=== PATIENT | female | born 1960 | race Caucasian/White ===

== ENCOUNTER 2019-11-06 14:12 | Emergency (ER) | payer BC ==
[2019-11-06 14:24] VITALS: TEMP 97.4
[2019-11-06] MEDS ORDERED: ONDANSETRON 4 MG/2 ML VIAL IVP STA (14:39)
[2019-11-06] MEDS ORDERED: SODIUM CHLORIDE 0.9% 1,000 ML IV STA (14:39)
[2019-11-06] MEDS ORDERED: HYDROmorphone 1 MG/ML 1 ML SYRINGE IVP STA (14:39)
--- NOTE | 2019-11-06 14:49 | ED ---
Abdominal Pain HPI - General Chief Complaint: Abdominal Pain Stated Complaint: left flank pain Time Seen by Provider: 11/06/19 14:26 Source: patient Mode of arrival: wheelchair Limitations: no limitations - History of Present Illness Initial Comments: Patient is a 59-year-old female with past medical history of hypertension who presents emergency Department with sudden onset left-sided flank pain. She states that just prior to arrival she began having excruciating sharp, left- sided flank pain that does not radiate. Pain was so severe that she ended up having an episode of nonbilious, nonbloody vomiting. No history of similar in the past. Denies history of kidney stones. Denies dysuria, hematuria or difficulty voiding. Denies diarrhea, constipation, melenic stools or hematochezia. Abnormal vaginal bleeding or discharge. Denies recent trauma. No fevers or chills. Did not take any medications at home for symptoms. No associated rash. Patient writhing around in bed and so history is difficult to obtain. Denies numbness, tingling or weakness in her lower extremities. No chest pain or shortness of breath. No other alleviating, precipitating or modifying factors - Related Data Previous Rx's Medication Instructions Recorded Hydrocodone/Acetaminophen [[place] 1 tab PO Q6HR PRN #12 tab 11/06/19 5-325] Allergies Allergy/AdvReac Type Severity Reaction Status Date / Time No Known Allergies Allergy Verified 11/06/19 14:24 Review of Systems ROS Statement: Those systems with pertinent positive or pertinent negative responses have been documented in the HPI. ROS Other: All systems not noted in ROS Statement are negative. Past Medical History Past Medical History: Hyperlipidemia, Hypertension, Thyroid Disorder History of Any Multi-Drug Resistant Organisms: None Reported Additional Past Surgical History / Comment(s): thyroid surgery Past Psychological History: No Psychological Hx Reported Smoking Status: Never smoker Past Alcohol Use History: None Reported Past Drug Use History: None Reported General Exam Limitations: no limitations General appearance: alert, in distress Head exam: Present: atraumatic, normocephalic, normal inspection Eye exam: Present: normal appearance, PERRL, EOMI. Absent: scleral icterus, conjunctival injection, periorbital swelling ENT exam: Present: normal exam, mucous membranes moist Neck exam: Present: normal inspection. Absent: tenderness, meningismus, lymphadenopathy Respiratory exam: Present: normal lung sounds bilaterally. Absent: respiratory distress, wheezes, rales, rhonchi, stridor Cardiovascular Exam: Present: regular rate, normal rhythm, normal heart sounds. Absent: systolic murmur, diastolic murmur, rubs, gallop, clicks GI/Abdominal exam: Present: soft, normal bowel sounds. Absent: distended, tenderness, guarding, rebound, rigid Extremities exam: Present: normal inspection, full ROM, normal capillary refill. Absent: tenderness, pedal edema, joint swelling, calf tenderness Back exam: Present: normal inspection Neurological exam: Present: alert, oriented X3, CN II-XII intact Psychiatric exam: Present: normal affect, normal mood Skin exam: Present: warm, dry, intact, normal color. Absent: rash Course Vital Signs 11/06/19 11/06/19 14:19 16:58 Temperature 97.4 F L Pulse Rate 69 67 Respiratory 20 16 Rate Blood Pressure 130/89 151/75 O2 Sat by Pulse 98 98 Oximetry Medical Decision Making - Medical Decision Making Upon arrival the patient is placed in room 21. A thorough history and physical exam was performed. The patient is writhing around in pain. We did insert a peripheral IV the patient was given 1 mg of Dilaudid and 4 mg of Zofran. I also gave her liter bolus of normal saline. Laboratory studies were conducted. The patient go over for a CT of her abdomen and pelvis with contrast. Laboratory studies are unremarkable. Urinalysis shows moderate blood with moderate leukocyte esterase, 132 red blood cells and 27 white blood cells. This will go for culture. A CT of the patient's abdomen and pelvis demonstrates small obstructing hydrocephalus at the left ureterovesicular junction with left-sided hydronephrosis and mild hydroureter also low density right adrenal mass suggestive of benign disease. The patient is reevaluated and does have improvement in her symptoms. Reports her pain is 2 out of 10 at this time. I did discuss diagnosis, differential and treatment options. At this time the patient will be discharged home and given a prescription for [place]. Side effect profile discuss with the patient. She is to strain all urine. Increase fluid intake. She can take Motrin at home alternating with the [place]. No additional Tylenol to be taken. She is to follow up to primary care doctor in 2-4 days. I also provided her with information in regards to our urologist on-call. Return to the emergency room for any new or worsening symptoms. Patient understood this was discharged home in stable condition - Lab Data Result diagrams: 11/06/19 14:57 11/06/19 14:57 Lab Results 11/06/19 11/06/19 11/06/19 Range/Units 14:57 14:57 14:57 WBC 7.9 (3.8-10.6) k/uL RBC 4.73 (3.80-5.40) m/uL Hgb 14.9 (11.4-16.0) gm/dL Hct 43.9 (34.0-46.0) % MCV 92.7 (80.0-100.0) fL MCH 31.4 (25.0-35.0) pg MCHC 33.9 (31.0-37.0) g/dL RDW 12.9 (11.5-15.5) % Plt Count 279 (150-450) k/uL Neutrophils % 68 % Lymphocytes % 22 % Monocytes % 5 % Eosinophils % 3 % Basophils % 0 % Neutrophils # 5.3 (1.3-7.7) k/uL Lymphocytes # 1.7 (1.0-4.8) k/uL Monocytes # 0.4 (0-1.0) k/uL Eosinophils # 0.2 (0-0.7) k/uL Basophils # 0.0 (0-0.2) k/uL Sodium 139 (137-145) mmol/L Potassium 4.2 (3.5-5.1) mmol/L Chloride 108 H (98-107) mmol/L Carbon Dioxide 24 (22-30) mmol/L Anion Gap 7 mmol/L BUN 20 H (7-17) mg/dL Creatinine 0.84 (0.52-1.04) mg/dL Est GFR (CKD-EPI)AfAm 87 (>60 ml/min/1.73 sqM) Est GFR (CKD-EPI)NonAf 76 (>60 ml/min/1.73 sqM) Glucose 127 H (74-99) mg/dL Plasma Lactic Acid Rk 1.8 (0.7-2.0) mmol/L Calcium 9.2 (8.4-10.2) mg/dL Total Bilirubin 0.4 (0.2-1.3) mg/dL AST 28 (14-36) U/L ALT 23 (4-34) U/L Alkaline Phosphatase 77 (38-126) U/L Total Protein 7.7 (6.3-8.2) g/dL Albumin 4.2 (3.5-5.0) g/dL Lipase 62 (23-300) U/L Urine Color Urine Appearance (Clear) Urine pH (5.0-8.0) Ur Specific [place] (1.001-1.035) Urine Protein (Negative) Urine Glucose (UA) (Negative) Urine Ketones (Negative) Urine Blood (Negative) Urine Nitrite (Negative) Urine Bilirubin (Negative) Urine Urobilinogen (<2.0) mg/dL Ur Leukocyte Esterase (Negative) Urine RBC (0-5) /hpf Urine WBC (0-5) /hpf Ur Squamous Epith Cells (0-4) /hpf 11/06/19 Range/Units 17:00 WBC (3.8-10.6) k/uL RBC (3.80-5.40) m/uL Hgb (11.4-16.0) gm/dL Hct (34.0-46.0) % MCV (80.0-100.0) fL MCH (25.0-35.0) pg MCHC (31.0-37.0) g/dL RDW (11.5-15.5) % Plt Count (150-450) k/uL Neutrophils % % Lymphocytes % % Monocytes % % Eosinophils % % Basophils % % Neutrophils # (1.3-7.7) k/uL Lymphocytes # (1.0-4.8) k/uL Monocytes # (0-1.0) k/uL Eosinophils # (0-0.7) k/uL Basophils # (0-0.2) k/uL Sodium (137-145) mmol/L Potassium (3.5-5.1) mmol/L Chloride (98-107) mmol/L Carbon Dioxide (22-30) mmol/L Anion Gap mmol/L BUN (7-17) mg/dL Creatinine (0.52-1.04) mg/dL Est GFR (CKD-EPI)AfAm (>60 ml/min/1.73 sqM) Est GFR (CKD-EPI)NonAf (>60 ml/min/1.73 sqM) Glucose (74-99) mg/dL Plasma Lactic Acid Rk (0.7-2.0) mmol/L Calcium (8.4-10.2) mg/dL Total Bilirubin (0.2-1.3) mg/dL AST (14-36) U/L ALT (4-34) U/L Alkaline Phosphatase (38-126) U/L Total Protein (6.3-8.2) g/dL Albumin (3.5-5.0) g/dL Lipase (23-300) U/L Urine Color Light Yellow Urine Appearance Cloudy H (Clear) Urine pH 6.5 (5.0-8.0) Ur Specific [place] 1.043 H (1.001-1.035) Urine Protein Negative (Negative) Urine Glucose (UA) Negative (Negative) Urine Ketones Negative (Negative) Urine Blood Moderate H (Negative) Urine Nitrite Negative (Negative) Urine Bilirubin Negative (Negative) Urine Urobilinogen <2.0 (<2.0) mg/dL Ur Leukocyte Esterase Moderate H (Negative) Urine RBC 132 H (0-5) /hpf Urine WBC 27 H (0-5) /hpf Ur Squamous Epith Cells <1 (0-4) /hpf Disposition Clinical Impression: Left flank pain, Left ureteral calculus Disposition: HOME SELF-CARE Condition: Stable Instructions (If sedation given, give patient instructions): Kidney Stones (ED) Additional Instructions: Please take the [place] alternating with Motrin 400 mg. Do not take any extra Tylenol. Strain all urine. Increase fluid intake. Return to the emergency room for any new or worsening symptoms Prescriptions: Hydrocodone/Acetaminophen [[place] 5-325] 1 tab PO Q6HR PRN #12 tab PRN Reason: Pain Is patient prescribed a controlled substance at d/c from ED?: Yes When asked, does pt state using other controlled substances?: No If prescribed controlled substance>3 days was MAPS reviewed?: Prescribed <3 Days If opioid is for acute pain is fill amount 7 days or less?: Yes If Rx opioid, was Start Talking consent form obtained?: Yes Referrals: Elmira Man MD [Primary Care Provider] - 1-2 days Mahad Anthony MD [STAFF PHYSICIAN] - 1-2 days Time of Disposition: 17:29
[2019-11-06] MEDS ORDERED: KETOROLAC 30 MG/ML 1 ML VIAL IVP STA (14:59)
[2019-11-06 15:10] LABS: Basophils % (A) 0 %; Eosinophils # (A) 0.2 k/uL (0-0.7); Eosinophils % (A) 3 %; HCT 43.9 % (34.0-46.0); HGB 14.9 gm/dL (11.4-16.0); Lymphocytes # (A) 1.7 k/uL (1.0-4.8); Lymphocytes % (A) 22 %; MCH 31.4 pg (25.0-35.0); MCHC 33.9 g/dL (31.0-37.0); MCV 92.7 fL (80.0-100.0); Mean Platelet Volume 7.7; Monocytes # (A) 0.4 k/uL (0-1.0); Monocytes % (A) 5 %; Neutrophils # (A) 5.3 k/uL (1.3-7.7); Neutrophils % (A) 68 %; Platelet Count 279 k/uL (150-450); RBC 4.73 m/uL (3.80-5.40); RDW 12.9 % (11.5-15.5); WBC 7.9 k/uL (3.8-10.6)
[2019-11-06 15:21] LABS: Albumin 4.2 g/dL (3.5-5.0); Calcium 9.2 mg/dL (8.4-10.2); Potassium 4.2 mmol/L (3.5-5.1); Total Bilirubin 0.4 mg/dL (0.2-1.3); Total Protein 7.7 g/dL (6.3-8.2)
--- NOTE | 2019-11-06 15:44 | CT ---
EXAMINATION TYPE: CT abdomen pelvis w con DATE OF EXAM: 11/06/2019 COMPARISON: None HISTORY: Left flank pain CT DLP: 2585.4 mGycm Automated exposure control for dose reduction was used. CONTRAST: Performed with IV Contrast, patient injected with 100 mL of Isovue 300. Multiple axial sections were obtained from the diaphragm to the floor the pelvis with IV contrast Iso sophie 100 mL. There is interstitial infiltrates and atelectasis at the lung bases. There is no pleural effusion. He art size is normal. There is no pericardial effusion. The stomach is intact. Liver spleen pancreas ap pear normal. There is 1.5 cm calcified gallstone. The bile ducts are not dilated. There is small hiat al hernia. There is a oval-shaped 2 cm right adrenal low-density mass suggestive of benign disease. Kidneys show satisfactory contrast opacification. There is delayed left side pyelogram. There is enlargement of t he left renal pelvis and calyces. There is evidence of a 2 mm calculus at the left ureterovesical ele ction. The right kidneys show satisfactory excretion. There is no retroperitoneal adenopathy. The appendix is posterior and appears normal. There is 2.6 cm cyst on the right ovary. Bladder disten ds smoothly. There is no free fluid in the pelvis. There is no inguinal hernia. There is no mesenteric edema. There is no ascites or free air. There is no bowel obstruction. Lumbar vertebra have normal alignment. Disc spaces are fairly normal. Posterior elements are intact. Bony pelvis is intact. IMPRESSION: Small obstructing calculus at the left ureterovesical Junction with left-sided hydronephrosis and mil d hydroureter. Low-density right adrenal mass suggestive of benign disease. Cholelithiasis.
[2019-11-06 16:59] VITALS: BP 151/75; PULSE 67; RESP 16
[2019-11-06 17:15] LABS: Appearance,Urine Cloudy (Clear); Bilirubin,Urine Negative (Negative); Blood,Urine Moderate (Negative); Color,Urine Light Yellow; Glucose,Urine (UA) Negative (Negative); Ketones,Urine Negative (Negative); Leukocyte Esterase,Urine Moderate (Negative); Nitrite,Urine Negative (Negative); PH, Urine 6.5 (5.0-8.0); Protein,Urine Negative (Negative); RBC,Urine 132 /hpf (0-5); Specific Gravity,Urine 1.043 (1.001-1.035); Squamous Epithelial Cell,Urine <1 /hpf (0-4); Urobilinogen,Urine <2.0 mg/dL (<2.0); WBC,Urine 27 /hpf (0-5)
[2019-11-06] MEDS ORDERED: cefTRIAXone IN SWFI 1,000 MG/10 ML SYRINGE IVP STA (17:24)
== END 2019-11-06 17:50 | disposition home or self-care (01) ==
LOC: EC 14:12
DX: N13.2 Hydronephrosis with renal and ureteral calculous obstruction (principal); E27.9 Disorder of adrenal gland, unspecified
CPT/HCPCS: 36415; 80053; 83605; 83690; 85025; 81001; 87086; 74177; 99284; 96374; 96375 ×3; 96361 ×2; J2405; J0696; J1885; J1170; Q9967